=== PATIENT | male | born 1965 | race Caucasian/White ===

== ENCOUNTER 2017-08-18 11:07 | Day surgery (SDC) | payer BC ==
[2017-08-17 10:34] VITALS: BMI 31.8
[~2017-08-18 11:07] MED LIST: LACTATED RINGERS 1,000 ML IV SCH; LIDOCAINE 1% 20 ML VIAL (10MG/ML) FOR IV START INTRADERMA PRN
[2017-08-18 11:42] VITALS: TEMP 96.4
[2017-08-18] MEDS ORDERED: LIDOCAINE 1% INJ 10MG/ML (20 ML MDV) ONE (12:14)
[2017-08-18] MEDS ORDERED: PROPOFOL 10 MG/ML 20 ML VIAL IV ONE (12:14)
--- NOTE | 2017-08-18 12:35 | P.PCN ---
Date of Procedure: 08/18/17 Procedure(s) Performed: BRIEF HISTORY: Patient is a 51-year-old pleasant white male, scheduled for an elective colonoscopy as a part of change in bowel habits and intermittent rectal seepage for the last several months duration. PROCEDURE PERFORMED: Colonoscopy with snare polypectomy. PREOPERATIVE DIAGNOSIS: Change mall habits. IV sedation per Anesthesia. PROCEDURE: After informed consent was obtained, the patient, was brought into the endoscopy unit. IV sedation was administered by Anesthesia under continuous monitoring. Digital rectal examination was normal. Initially the Olympus CF- 160 flexible video colonoscope was then inserted in the rectum, gradually advanced into the cecum without any difficulty. Careful examination was performed as the scope was gradually being withdrawn. Ileocecal valve and the appendiceal orifice were visualized and appeared normal. Prep was excellent. Mucosa of the cecum, ascending colon, transverse colon, descending colon, sigmoid colon, appeared normal. In the rectosigmoid colon, 20 cm from the anal was there was a 1 cm polyp removed by snare polypectomy. The rectum appeared normal. Retroflexion was performed in the rectum and no lesions were seen. The patient tolerated the procedure well. IMPRESSION: 1 cm rectosigmoid polyp status post polypectomy Rest of the colon appeared normal RECOMMENDATIONS: Findings of this examination were discussed with the patient as well as his family. He was advised to follow with the biopsy results. If the biopsy shows a tubular adenoma, he can have a repeat colonoscopy in 3-5 years.
[2017-08-18 12:57] VITALS: BP 117/81; PULSE 60; RESP 18
== END 2017-08-18 13:09 | disposition home or self-care (01) ==
LOC: ORWHC2ENDO 11:07
PROVIDERS: ATTEND Internal Medicine Gastroenterology
DX: K63.5 Polyp of colon (principal); R19.4 Change in bowel habit; K21.9 Gastro-esophageal reflux disease without esophagitis; Z79.899 Other long term (current) drug therapy; Z88.0 Allergy status to penicillin
CPT/HCPCS: 88305; 45385; J2001; J2704

== ENCOUNTER → 2021-08-21 | Outpatient (CLI) | payer OTHER ==
--- NOTE | 2021-08-21 10:01 | CT ---
EXAMINATION TYPE: CT facial bones wo con DATE OF EXAM: 08/21/2021 COMPARISON: None HISTORY: left side facial numbness and emaciation CT DLP: 924.4 mGycm Automated exposure control for dose reduction was used. TECHNIQUE: CT scan of the sinuses is performed without contrast, axial images are obtained, coronal r eformatted images are also reviewed. FINDINGS: The paranasal sinuses including the frontal, ethmoid, sphenoid, and maxillary sinuses bila terally are remarkable for possible air-fluid level left maxillary sinus, lobular soft tissue present within the dependent portions of the maxillary sinuses, there may be underlying polyp disease, infer ior turbinate on the left also shows thickening, there is a deviated nasal septum. Mucosal disease al so present within the ethmoid air cells. Bernarda bullosa is present on the right.. The ostiomeatal co mplex is patent bilaterally on the coronal images. Visualized portion of mastoid air cells show no abnormal opacification. The globes are intact bilate rally. Dental amalgam causes artifact which may obscure detail. Calcification present along the alutiiq arianne tonsil on the right likely due to chronic infection. Skin shows thickening, correlate to exclude cellulitis. There is a calcification present measuring approximately 3 mm at the level of the vallec lilliam on the right at the level the base of the tongue which is indeterminate. Cerebral vascular calcif ications are present. Muscles of mastication show symmetric appearance. Salivary glands are symmetric. No evident adenopath y. Apical scarring calcification present at the carotid bulb regions. IMPRESSION: Sinus disease as described, evidence of chronic infection. Indeterminate calcification.
== END | disposition home or self-care (01) ==
LOC: RADCTMAIN 07:24
PROVIDERS: ATTEND Family Medicine
DX: J34.89 Other specified disorders of nose and nasal sinuses (principal); J32.8 Other chronic sinusitis
CPT/HCPCS: 70486

== ENCOUNTER 2025-02-27 07:42 | Day surgery (SDC) | payer OTHER ==
[2025-02-23 09:45] VITALS: BMI 27.1
[~2025-02-27 07:42] MED LIST changes: -LACTATED RINGERS 1,000 ML IV SCH; +LIDOCAINE 1% (10MG/ML) FOR IV START INTRADERMA PRN; -LIDOCAINE 1% 20 ML VIAL (10MG/ML) FOR IV START INTRADERMA PRN; +ONDANSETRON 4 MG/2 ML VIAL IVP PRN
[2025-02-27] MEDS: IV FLUID CONTINUATION 1,000 ML IV ONE (07:55)
[2025-02-27 08:03] VITALS: RESP 16; TEMP 97.6
[2025-02-27] MEDS: LACTATED RINGERS 1,000 ML IV SCH (08:06)
[2025-02-27] MEDS ORDERED: PROPOFOL 10 MG/ML 20 ML VIAL IV ONE (08:45)
--- NOTE | 2025-02-27 08:58 | P.PCN ---
Date of Procedure: 02/27/25 Procedure(s) Performed: BRIEF HISTORY: Patient is a 59-year-old pleasant white male scheduled for an elective colonoscopy as a part of screening for colon cancer. PROCEDURE PERFORMED: Colonoscopy. PREOPERATIVE DIAGNOSIS: Screening for colon cancer. IV sedation per Anesthesia. PROCEDURE: After informed consent was obtained, the patient, was brought into the endoscopy unit. IV sedation was administered by Anesthesia under continuous monitoring. Digital rectal examination was normal. Initially the Olympus CF-160 flexible video colonoscope was then inserted in the rectum, gradually advanced into the cecum without any difficulty. Careful examination was performed as the scope was gradually being withdrawn. Ileocecal valve and the appendiceal orifice were visualized and appeared normal. Prep was excellent. Mucosa of the cecum, ascending colon, transverse colon, descending colon, sigmoid colon, and rectum appeared normal. Retroflexion was performed in the rectum and no lesions were seen. The patient tolerated the procedure well. IMPRESSION: Normal-appearing colon from rectum to cecum with no evidence of colorectal neoplasia. RECOMMENDATIONS: Findings of this examination were discussed with the patient as well as his family. He was advised to have repeat screening colonoscopy in 10 years.
[2025-02-27 09:29] VITALS: BP 106/69; PULSE 50
== END 2025-02-27 09:40 ==
LOC: ORWHC2ENDO 07:42
PROVIDERS: ATTEND Internal Medicine Gastroenterology
DX: Z12.11 Encounter for screening for malignant neoplasm of colon (principal); G47.33 Obstructive sleep apnea (adult) (pediatric); Z99.89 Dependence on other enabling machines and devices; Z87.891 Personal history of nicotine dependence; Z88.0 Allergy status to penicillin
CPT/HCPCS: 45378; J2704